=== PATIENT | female | born 1990 | race American Indian/Alaskan Native ===

== ENCOUNTER 2017-01-25 04:48 | Emergency (ER) | payer OTHER ==
[2017-01-25 05:17] VITALS: BP 111/76
[2017-01-25] MEDS ORDERED: TYLENOL #3 PO ONE (06:48)
[2017-01-25] MEDS ORDERED: AUGMENTIN 875 MG PO ONE (06:48)
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
== END 2017-01-25 07:15 | disposition home or self-care (01) ==
LOC: ED 04:48
DX: K04.7 Periapical abscess without sinus (principal); F17.200 Nicotine dependence, unspecified, uncomplicated
CPT/HCPCS: 99282

== ENCOUNTER 2020-12-20 07:52 | Emergency (ER) | payer SELFPAY ==
[2020-12-20 08:28] VITALS: BP 153/104
[2020-12-20] MEDS ORDERED: IBUPROFEN ORAL LIQD 100 MG/5 ML ORAL.LIQD PO ONE (10:07)
[2020-12-20] MEDS ORDERED: ACETAMINOPHEN 325 MG/10.15 ML ORAL LIQD UNIT DOSE PO ONE (10:07)
--- NOTE | 2020-12-20 10:08 | Emergency Department Report ---
ED General Adult HPI - General Chief complaint: Dental/Oral Stated complaint: TOOTHACHE x3 DAYS PUI?: No Time Seen by Provider: 12/20/20 08:53 Source: patient, RN notes reviewed, old records reviewed Mode of arrival: Ambulatory Limitations: No Limitations - History of Present Illness Initial comments: The patient is a 30-year-old female. She is not known to myself previously. She states that she is not , and she reports that she has not delivered or given in the past 6 weeks. Patient presents to the ER with a complaint of nontraumatic left maxillary superior jaw pain, left-sided facial swelling. This has been going on for 3 days. She denies headache, neck pain, chest pain, abdominal pain, shortness of breath. She has no pain with extraocular movements. She has not really taken anything [id number] for her physical discomfort. Positive discomfort with chewing, and sensitivity to cold and to hot. She does not brush teeth on a regular basis. She does not floss on a regular basis. She has not seen a dentist in quite some time. She denies additional injuries and complaints. The symptoms have been going on for 3 days. -: Gradual, days(s) Location: mouth Radiation: non-radiation Quality: aching Consistency: constant Improves with: rest Worsens with: eating, movement - Related Data Previous Rx's Medication Instructions Recorded Last Taken Type Acetaminophen [Acetaminophen ORAL 650 mg PO Q4HR PRN #1 bottle 12/20/20 Unknown Rx LIQ] Amoxicillin [Amoxicillin 400 MG/5 400 mg PO Q8H 10 Days #2 bottle 12/20/20 Unknown Rx ML] Chlorhexidine Mouthwash [Peridex] 15 ml MM BID #1 bottle 12/20/20 Unknown Rx Ibuprofen Oral Liqd [Motrin Oral 400 mg PO Q6HR PRN #1 bottle 12/20/20 Unknown Rx Liq 100 mg/5 ml] Allergies Allergy/AdvReac Type Severity Reaction Status Date / Time No Known Allergies Allergy Verified 06/23/13 15:46 ED Review of Systems ROS: Stated complaint: TOOTHACHE x3 DAYS Other details as noted in HPI Comment: All other systems reviewed and negative Constitutional: denies: fever ENT: dental pain ED Past Medical Hx - Past Medical History Previous Medical History?: No Hx Hypertension: No Hx Psychiatric Treatment: No - Surgical History Additional Surgical History: A1 - Social History Smoking Status: Current Every Day Smoker Substance Use Type: None - Medications Home Medications: Home Medications Medication Instructions Recorded Confirmed Last Taken Type Acetaminophen [Acetaminophen ORAL 650 mg PO Q4HR PRN #1 bottle 12/20/20 Unknown Rx LIQ] Amoxicillin [Amoxicillin 400 MG/5 400 mg PO Q8H 10 Days #2 bottle 12/20/20 Unknown Rx ML] Chlorhexidine Mouthwash [Peridex] 15 ml MM BID #1 bottle 12/20/20 Unknown Rx Ibuprofen Oral Liqd [Motrin Oral 400 mg PO Q6HR PRN #1 bottle 12/20/20 Unknown Rx Liq 100 mg/5 ml] ED Physical Exam - General Limitations: No Limitations General appearance: alert, in no apparent distress - Head Head exam: Present: atraumatic, normocephalic - Eye Eye exam: Present: normal appearance, EOMI. Absent: nystagmus - ENT ENT exam: Present: normal orophraynx, mucous membranes moist, TM's normal bilaterally, normal external ear exam, other (The left cheek is swollen. There is no stridor. There is no dysphonia. There is no elevation of the base of the tongue. The sublingual space is nontender. There is no trismus. There appears to be gingival induration, and possible periapical abscess, near teeth #14, 15. Patient is protecting h) - Neck Neck exam: Present: normal inspection, full ROM, lymphadenopathy (Cervical lymphadenopathy). Absent: tenderness, meningismus - Respiratory Respiratory exam: Present: normal lung sounds bilaterally. Absent: respiratory distress, wheezes, rales, rhonchi, stridor, decreased breath sounds - Cardiovascular Cardiovascular Exam: Present: regular rate, normal rhythm, normal heart sounds. Absent: bradycardia, tachycardia, irregular rhythm, systolic murmur, diastolic m urmur, rubs, gallop - GI/Abdominal GI/Abdominal exam: Present: soft. Absent: distended, tenderness, guarding, rebound, rigid, pulsatile mass - Extremities Exam Extremities exam: Present: normal inspection, full ROM, other (2+ pulses noted in the bilateral upper and lower extremities. There is no palpable cord. negative Homans sign. Muscular compartments are soft. The pelvis is stable.). Absent: pedal edema, calf tenderness - Back Exam Back exam: Present: normal inspection. Absent: tenderness, CVA tenderness (R), CVA tenderness (L), paraspinal tenderness, vertebral tenderness - Neurological Exam Neurological exam: Present: alert, oriented X3, normal gait, other (No facial droop. Tongue midline. Extraocular movements intact bilaterally. Facial sensation intact to light touch in V1, V2, V3 distribution bilaterally. 5 and a 5 strength in 4 extremities. Sensation intact to light touch in 4 extremities.). Absent: motor sensory deficit - Psychiatric Psychiatric exam: Present: normal affect, normal mood - Skin Skin exam: Present: warm, dry, intact, normal color. Absent: rash ED Course Vital Signs 12/20/20 12/20/20 08:26 08:27 Temperature 98.9 F Pulse Rate 94 H Respiratory 16 Rate Blood Pressure 153/104 O2 Sat by Pulse 100 Oximetry - Pulse Oximetry Interpretation Digit-Finger Initial Pulse Oximetry Readin O2 Sat by Pulse Oximetry: 98 Actions Taken: none ED Medical Decision Making - Lab Data Vital Signs 12/20/20 12/20/20 08:26 08:27 Temperature 98.9 F Pulse Rate 94 H Respiratory 16 Rate Blood Pressure 153/104 O2 Sat by Pulse 100 Oximetry - Medical Decision Making Differential diagnosis, including but not limited to: Periodontal disease, periapical abscess, gingivitis, Assessment and plan: 30-year-old female, who is afebrile, with reassuring vital signs, with exception of elevated blood pressure, which is not acutely symptomatic or decompensated, likely secondary to pain and anxiety associated with periodontal disease, resenting with left-sided periapical abscess/gingivitis. The patient is protecting her airway. She has no stridor or dysphonia. The neck is supple. Have counseled patient that she will need to closely follow-up with an outpatient dentist and or oral surgeon. We will start oral antibiotics, as well as chlorhexidine mouthwash. Discharge with as needed liquid acetaminophen and ibuprofen. Emphasized the importance of proper oral hygiene. This patient does require dental evaluation, but she is medically suitable at this point time to require outpatient dental evaluation, and does not require emergent consultation or transfer at this time. Critical care attestation.: If time is entered above; I have spent that time in minutes in the direct care of this critically ill patient, excluding procedure time. ED Disposition Clinical Impression: Dentalgia Disposition: - TO HOME OR SELFCARE Is pt being admited?: No Does the pt Need Aspirin: No Condition: Good Instructions: Dental Abscess Additional Instructions: Recommend that patient see a dentist or oral surgeon as soon as possible to definitively manage left-sided periapical abscess and gingivitis/dental infection. In general, patient should brush teeth at least twice daily, and floss once ev harjinder 24 hours. Advance diet as tolerated, avoid excessively hot and/or cold foods. Avoid consumption of smoke products, alcohol, and excessive sweets. Patient should also follow-up with a primary medical doctor, within the next 3 to 4 weeks. Please take the pain medication, and antibiotics as directed. Below information is contact information for [facility]. Please return to the emergency room right away with new pain, worsened pain, migration of pain, projectile vomiting, change in mental status, confusion, inability to tolerate liquid feeds, new, worsened or different symptoms not present on the initial emergency room evaluation. For the patient's convenience, she will be given a good Rx affordable prescription card. [facility] [address] [place] [address] [address] [place]: 11 AM - 4:30 PM Sunday: 8 AM - 4:30 PM Every other : 8 AM - 4:30 PM Every other Sunday: 8 AM - 4:30 PM (Main) (Appointments) Referrals: [facility] [Outside] - 3-5 Days ANGEL WAYNE MD [Staff Physician] - as needed (primary care)
[2020-12-20] MEDS ORDERED: AMOXICILLIN 250 MG/10 ML ORAL SYRINGE PO ONE (11:00)
== END 2020-12-20 10:00 | disposition home or self-care (01) ==
LOC: ED 07:52
DX: K08.89 Other specified disorders of teeth and supporting structures (principal); F17.200 Nicotine dependence, unspecified, uncomplicated; Z79.899 Other long term (current) drug therapy
CPT/HCPCS: 99282

== ENCOUNTER 2021-08-20 15:44 | Emergency (ER) | payer SELFPAY ==
--- NOTE | 2021-08-20 23:06 | Emergency Department Report ---
ED Rash HPI - HPI Chief Complaint: Skin Rash Stated Complaint: RASH ON FACE Time Seen by Provider: 08/20/21 21:14 Duration: year (Complaining of facial rash off and on for the last year) Location: Other (face) Suspected Cause: Unknown Rash Symptoms: Yes Itching Severity: moderate ED Review of Systems ROS: Stated complaint: RASH ON FACE Other details as noted in HPI Comment: All other systems reviewed and negative ED Past Medical Hx - Past Medical History Hx Hypertension: No Hx Psychiatric Treatment: No - Surgical History Additional Surgical History: A1 - Social History Smoking Status: Never Smoker - Medications Home Medications: Home Medications Medication Instructions Recorded Confirmed Last Taken Type Acetaminophen [Acetaminophen ORAL 650 mg PO Q4HR PRN #1 bottle 12/20/20 Unknown Rx LIQ] Amoxicillin [Amoxicillin 400 MG/5 400 mg PO Q8H 10 Days #2 bottle 12/20/20 Unknown Rx ML] Chlorhexidine Mouthwash [Peridex] 15 ml MM BID #1 bottle 12/20/20 Unknown Rx Ibuprofen Oral Liqd [Motrin Oral 400 mg PO Q6HR PRN #1 bottle 12/20/20 Unknown Rx Liq 100 mg/5 ml] Ciclopirox 0.77% (Nf) [Loprox 1 applic TP BID #60 tube 08/20/21 Unknown Rx 0.77% (Nf)] hydrOXYzine HCL [Atarax] 25 mg PO Q6HR PRN #20 tablet 08/20/21 Unknown Rx Rash Exam - Exam General: Vital signs noted. No distress. Alert and acting appropriately. HEENT: No Periorbital Edema, No Conjuctival Injection, No Chemosis, No Perioral Edema, No Tongue Edema, No Uvular Edema, No Compromised Airway, No Drooling Lungs: Yes Good Air Exchange (Normal Breath Sounds), No Wheezes, No Ronchi, No Stridor, No Cough, No Labored Respirations, No Retractions, No Use of Accessory Muscles, No Other Abnormal Lung Sounds Heart: Yes Regular, No Murmur Skin: Yes Other (Scale the slightly raised reddish to the face and some hypopigmented areas resembling tinea) Other: Positive: Abdomen Normal, Neurologic Normal, Musculoskeletal Normal ED Course Vital Signs 08/20/21 08/20/21 17:13 17:15 Temperature 98.5 F 98.4 F Pulse Rate 82 82 Respiratory 18 18 Rate Blood Pressure 104/65 Blood Pressure 104/65 [Right] O2 Sat by Pulse 100 100 Oximetry Critical care attestation.: If time is entered above; I have spent that time in minutes in the direct care of this critically ill patient, excluding procedure time. ED Disposition Clinical Impression: Facial rash Disposition: HOME / SELF CARE / HOMELESS Is pt being admited?: No Does the pt Need Aspirin: No Condition: Stable Instructions: Rash, Adult Prescriptions: hydrOXYzine HCL [Atarax] 25 mg PO Q6HR PRN #20 tablet PRN Reason: Itching Ciclopirox 0.77% (Nf) [Loprox 0.77% (Nf)] 1 applic TP BID #60 tube Referrals: ANGEL WAYNE MD [Primary Care Provider] - 3-5 Days
[2021-08-20 23:27] VITALS: BP 121/76
== END 2021-08-20 23:27 | disposition home or self-care (01) ==
LOC: ED 15:44
DX: R21 Rash and other nonspecific skin eruption (principal)
CPT/HCPCS: 99282